=== PATIENT | female | born 1985 | race Caucasian/White ===

== ENCOUNTER 2017-09-03 08:00 | Outpatient (CLI) | payer OTHER ==
[2017-09-03 12:50] LABS: BASOPHILS % (AUTO) 0.6 %; EOSINOPHILS # (AUTO) 0.1 10^3/uL (0.0-0.7); EOSINOPHILS % (AUTO) 1.3 %; HGB - HEMOGLOBIN 13.7 g/dL (12.0-16.0); LYMPHOCYTES # (AUTO) 1.7 10^3/uL (1.5-3.5); LYMPHOCYTES % (AUTO) 22.4 %; MEAN CORPUSCULAR HEMOGLOBIN 29.3 pg (27.0-31.0); MEAN CORPUSCULAR HGB CONC 33.7 g/dL (32.0-36.0); MEAN CORPUSCULAR VOLUME 87.1 fL (81.0-99.0); MONOCYTES # (AUTO) 0.4 10^3/uL (0.0-1.0); MONOCYTES % (AUTO) 4.9 %; NEUTROPHILS # (AUTO) 5.3 10^3/uL (1.5-6.6); NEUTROPHILS % (AUTO) 70.8 %; PLT - PLATELET COUNT 323 10^3/uL (130-450); RED BLOOD COUNT 4.67 10^6/uL (4.20-5.40); RED CELL DISTRIBUTION WIDTH 13.1 % (12.0-15.0); WHITE BLOOD COUNT 7.5 x10^3/uL (4.8-10.8)
[2017-09-03 13:17] LABS: BUN - BLOOD UREA NITROGEN 16 mg/dL (6-20); CALCIUM 9.1 mg/dL (8.5-10.3); CARBON DIOXIDE - CO2 23 mmol/L (21-32); CHLORIDE 107 mmol/L (101-111); CREATININE 0.5 mg/dL (0.4-1.0); GFR - MDRD 145 (>89); GLUCOSE 88 mg/dL (70-100); SODIUM 137 mmol/L (135-145)
== END 2017-09-03 08:01 | disposition home or self-care (01) ==
LOC: LAB.N 08:00
PROVIDERS: ATTEND Physician Assistant Medical
DX: Z00.00 Encounter for general adult medical examination without abnormal findings (principal)
CPT/HCPCS: 36415; 80048; 84443; 85025

== ENCOUNTER 2017-10-14 08:00 | Outpatient (CLI) | payer OTHER | END 2017-10-14 08:01 | disposition home or self-care (01) | LOC: LAB.N 08:00 | PROVIDERS: ATTEND Registered Nurse | DX: N97.9 Female infertility, unspecified (principal) | CPT/HCPCS: 36415; 84144 ==

== ENCOUNTER 2017-12-04 18:59 | Outpatient (CLI) | payer OTHER ==
--- NOTE | 2017-12-05 11:54 | Ultrasound Report ---
Procedure Date: 12/04/2017 Accession Number: [id number] / [id number] Procedure: US - Pelvic w/Transvaginal CPT Code: FULL RESULT: EXAM: PELVIC ULTRASOUND EXAM DATE: 12/04/2017 08:18 PM. CLINICAL HISTORY: FEMALE INFERTILITY, UNSPECIFIED. COMPARISON: None. TECHNIQUE: Realtime transabdominal pelvic scan performed to identify the uterus and adnexa and as an overview of other pelvic structures, followed by transvaginal scan to provide greater detail of the uterus and adnexa, with static image documentation. FINDINGS: Uterus: 8.6 x 4.9 x 3.3 cm, volume 73 cc. Anteverted position. There is a nodular echogenic focus about the lower uterine segment, 1.2 x 0.8 x 0.6 cm. Endometrium: 11 mm. Cervix: There is a small amount of fluid in the cervix. The cervix appears otherwise Unremarkable. Right Ovary: 3.0 x 2.8 x 2.7 cm, volume 12 cc. Normal echotexture and blood flow. Left Ovary: 2.9 x 2.7 x 2.6 cm, volume 11 cc. Normal echotexture and blood flow. Free Fluid: None. IMPRESSION: Echogenic focus in the lower uterine segment. Likely polyp or mass. 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 RADIA
== END 2017-12-04 19:00 | disposition home or self-care (01) ==
LOC: DI 18:59
PROVIDERS: ATTEND Registered Nurse
DX: N97.9 Female infertility, unspecified (principal)
CPT/HCPCS: 76830; 76856

== ENCOUNTER 2018-03-31 11:20 | Outpatient (CLI) | payer OTHER ==
[2018-03-31 11:42] LABS: HCG UR QUAL NEGATIVE
== END 2018-03-31 11:21 | disposition home or self-care (01) ==
LOC: LAB 11:20
PROVIDERS: ATTEND Obstetrics & Gynecology
DX: Z01.812 Encounter for preprocedural laboratory examination (principal); N92.0 Excessive and frequent menstruation with regular cycle
CPT/HCPCS: 81025

== ENCOUNTER 2018-04-01 12:50 | Day surgery (SDC) | payer OTHER ==
--- NOTE | 2018-03-31 17:04 | PREOP HISTORY & PHYSICAL ---
DATE OF ADMISSION: 04/01/2018 IDENTIFICATION: This is a 32-year-old G1, P0-0-1-0. HISTORY OF PRESENT ILLNESS: Patient presents today for her scheduled preoperative visit. She is anticipated to undergo a 04/01/2018 diagnostic laparoscopy chromopertubation, hysteroscopy, dilatation and curettage, Mirena IUD insertion with possible lysis of adhesions and excision of endometriotic implants. Patient has had a long history of menorrhagia. She would change a super tampon every 2-3 hours. She is passing significant clots and does feel lightheaded and dizzy. She denies any syncope. Patient is to the point where the bleeding is so heavy that she has to take a day off of work. In her teenage years, she did go on control pills, in which she did well on. Unfortunately, now after a trial of control pills, patient is getting significant nausea and vomiting. She does note having menstrual migraines. Discussed with patient the risks, benefits, alternatives, indications, and expectations of a diagnostic laparoscopy chromopertubation, hysteroscopy, dilatation and curettage with possible lysis of adhesions and excision of endometriotic implants. Patient also verbalized her desire for a Mirena IUD. Included in our discussion were the risks of infection, damage to surrounding organs and blood loss. The most common complication in this case is most likely uterine perforation. After all of patient's questions were answered to her satisfaction, she verbalized a desire to proceed with surgery. Consent forms have been signed. Currently, patient is doing well. Denies any nausea, vomiting, fevers, chills, diarrhea or constipation. She states at this time her is having medical issues and currently would not actively pursue at this time. She would like some more information, however, in order to make a decision in how she should proceed with respect to children in the future. She would consider to adopt if it were too difficult for her to conceive. PAST MEDICAL HISTORY: Melanoma. PAST SURGICAL HISTORY 1. Melanoma excised from her right arm. 2. 1992 tonsillectomy. ALLERGIES: NO KNOWN DRUG ALLERGIES. MEDICATIONS: None. SOCIAL HISTORY: She denies any tobacco or illicit drug use. She does consume alcohol on a social basis. Her pharmacy of choice is [facility] in [place], [place]. 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 Patient is also going to school for social work and will graduate in the near future with a Bachelor's degree. She is to [employer]. PAST SURGICAL HISTORY: One ectopic in the left fallopian tube and given methotrexate in [place]. This occurred in 2010. She has not had control pills in the last 4 years. 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 She did get the Gardasil vaccination series. Her last Pap smear was about a month ago. Her menses are monthly and very heavy. She denies any dysmenorrhea. FAMILY HISTORY: She denies any knowledge of female carcinoma and does not know if there is any endometriosis in the family. REVIEW OF SYSTEMS: Negative unless otherwise stated. OBJECTIVE PHYSICAL EXAMINATION VITAL SIGNS: Weighs 236 pounds, BMI 34, blood pressure is 114/68. GENERAL: Patient is a well-developed, well-nourished female in no apparent distress. She is alert and oriented x3. Patient is very pleasant need to speak to. CARDIOVASCULAR: Rate is regular, no murmurs or rubs. PULMONARY: Clear to auscultation bilaterally. ABDOMEN: Soft, nontender. No masses, rebound, rigidity or guarding. LABORATORY/DATA 12/04/2017 ultrasound shows the uterus measuring 8.6 x 4.0 x 3.3 cm and a volume of 73 mL. Uterus is anteverted. There is a nodular echogenic focus in the lower uterine segment measuring 2.1 x 0.8 x 0.6 cm. Endometrium measures 11 mm. Ovaries are normal. No free fluid. 09/03/2017 labs show potassium 4.1, creatinine 0.5, glucose 88. TSH 1.16, white blood count 7.6, H and H at 13.7 and 40.7, platelets at 323. ASSESSMENT 1. A 32-year-old G1, P0-0-1-0. 2. Menorrhagia. 3. History of infertility with a prior left ectopic , given status post methotrexate, 2010. 4. Suspect nodular echogenic focus in lower uterine segment, most likely endometrial polyp. PLAN 1. We will proceed to a scheduled diagnostic laparoscopy chromopertubation, hysteroscopy, dilatation and curettage with possible lysis of adhesions and excision of endometrial implant. Per patient, we will add also placement of Mirena IUD. 2. Patient to get a test in preparation for tomorrow's surgery. 3. Patient has been advised to take ibuprofen and Tylenol as her main form of pain control. Though hesitant, patient was given a prescription for Vicodin for any breakthrough pain. She recalled that she felt extremely nauseated not only with Vicodin, but oxycodone in the past. 4. Patient to return to see me in 2 weeks at [facility] for a routine postoperative check. TD: 03/31/2018 14:32 LITZY
[2018-04-01] MEDS ORDERED: LACTATED RINGERS 1,000 ML IV ONE ×2 (12:58→19:28)
[2018-04-01] MEDS ORDERED: CELECOXIB 100 MG CAPSULE PO ONE (13:13)
[2018-04-01] MEDS ORDERED: GABAPENTIN 400 MG CAPSULE ONE (13:14)
[2018-04-01] MEDS ORDERED: ACETAMINOPHEN 1,000 MG/100 ML 0 ML IV ONE (13:19)
--- NOTE | 2018-04-01 14:16 | ANESTHESIA ---
Pre-Anesthesia VS, & Labs - Diagnosis heavy menstruation, infertility - Procedure Diagnostic laparoscopy, chromopartusation, hysteroscopy, Dilation, and curettage Vital Signs: Temp Pulse Resp BP Pulse Ox 36.4 C L 87 17 120/72 100 04/01/18 13:07 04/01/18 13:07 04/01/18 13:07 04/01/18 13:07 04/01/18 13:07 Height 5 ft 10 in Weight (kg) 104 kg - NPO >8 hours - Is Patient ?: No Home Medications and Allergies Home Medications: Ambulatory Orders Ibuprofen [Advil] 200 mg PO 04/01/18 Ibuprofen [Advil] 200 mg PO 04/01/18 Allergies/Adverse Reactions: Allergies Allergy/AdvReac Type Severity Reaction Status Date / Time No Known Drug Allergies Allergy Verified 04/01/18 13:01 Anes History & Medical History - Anesthetic History Anesthesia Complications: reports: No previous complications - Medical History Cardiovascular: reports: None Pulmonary: reports: None Urinary: reports: None Musculoskeletal: reports: None Endocrine/Autoimmune: reports: None Skin: reports: Other - Surgical History Eyes Ears Nose Throat (EENT): Tonsil/Adenoidectomy Dermatologic: Skin cancer surgery Exam General: Alert Dental: WNL Mouth Opening: Greater than 4 Fingerbreadths Mallampati classification: I Thyromental Distance: greater than 6 cm Respiratory: Lungs clear Cardiovascular: Regular rate, Normal S1, Normal S2 Plan Anesthesia Type: General Consent for Procedure(s) Verified and Reviewed: Yes Code Status: Attempt Resuscitation ASA classification: 2-Mild systemic disease Is this case an emergency?: No
[2018-04-01] MEDS ORDERED: LIDOCAINE 1%-EPI 1:100000 30 ML MDV ONE (17:37)
[2018-04-01] MEDS ORDERED: METHYLENE BLUE 0.5% 50 MG/10 ML AMPULE ONE (18:19)
[2018-04-01] MEDS ORDERED: LIDOCAINE 1%-EPI 1:100000 30 ML MDV SUBQ ONE (18:27)
[2018-04-01] MEDS ORDERED: METHYLENE BLUE 0.5% 50 MG/10 ML AMPULE IR ONE (18:45)
[2018-04-01] MEDS ORDERED: ROCURONIUM 50 MG/5 ML VIAL IVP ONE (19:00)
[2018-04-01] MEDS ORDERED: METOCLOPRAMIDE 10 MG/2 ML VIAL IVP ONE (19:00)
[2018-04-01] MEDS ORDERED: DEXAMETHASONE 4 MG/ML VIAL IVP ONE (19:00)
[2018-04-01] MEDS ORDERED: fentaNYL 100 MCG/2 ML VIAL IVP ONE (19:00)
[2018-04-01] MEDS ORDERED: NEOSTIGMINE 1 MG/1 ML 10 ML MDV IVP ONE (19:00)
[2018-04-01] MEDS ORDERED: LIDOCAINE-MPF 2% 5 ML VIAL IM ONE (19:00)
[2018-04-01] MEDS ORDERED: MIDAZOLAM 2 MG/2 ML VIAL IVP ONE (19:00)
[2018-04-01] MEDS ORDERED: GLYCOPYRROLATE 1 MG/5 ML VIAL IVP ONE (19:00)
[2018-04-01] MEDS ORDERED: ONDANSETRON 4 MG/2 ML VIAL IVP ONE (19:00)
[2018-04-01] MEDS ORDERED: ACETAMINOPHEN 1,000 MG/100 ML 100 ML IV ONE (19:24)
[2018-04-01] MEDS ORDERED: KETOROLAC 30 MG/ML VIAL ONE (19:29)
[2018-04-01] MEDS ORDERED: LORazepam 2 MG/ML VIAL IVP PRN (19:30)
[2018-04-01] MEDS ORDERED: HYDROmorphone 0.5 MG/0.5 ML SYRINGE IVP PRN (19:30)
[2018-04-01] MEDS ORDERED: ONDANSETRON 4 MG/2 ML VIAL IVP PRN (19:30)
[2018-04-01] MEDS ORDERED: HYDROcod/ACETAM 5/325 MG TABLET PO PRN (19:30)
[2018-04-01] MEDS ORDERED: HYDROmorphone 0.5 MG/0.5 ML SYRINGE ONE ×2 (19:32→19:56)
--- NOTE | 2018-04-01 19:40 | OPERATIVE REPORT ---
Operative Report - Other Other Information/Narrative: Date of Operation: 04/01/2018 Surgeon: Shannan Rosario DO FACOG News Broadcaster: None Roving Changer: Nelsy You CRNA Anesthesia: GET Pre-op Dx: 1. 32 yo 2. Menorrhagia 3. Desired future fertility 4. H/O left ectopic 5. Desired Mirena IUD Post-op Dx 1. 32 yo 2. Menorrhagia 3. Desired future fertility 4. H/O left ectopic Procedure: 1. Laparoscopic lysis of adhesions 2. Hysteroscopy 3. Dilation and curettage 4. Removal of endometrial polyp 5. Chromopertubation 6. Insertion Mirena IUD (S/N [id number], Exp Jul 2020, LOT [id number]) Findings: 1. Normal uterine fundus, ovaries and right fallopian tube 2. Normal appendix 3. Questionable left fallopian tube clubbing 4. Inferoposteral endometrial polyp 5. Dye coming bilaterally from the fallopian tubes 6. No evidence of endometriosis Specimens: Endometrial curettings Drains: None EBL: 10 mL Complications: None Dictation: [id number]
[2018-04-01 23:08] VITALS: BP 114/72
--- NOTE | 2018-04-02 02:39 | OPERATIVE REPORT ---
DATE OF OPERATION: 04/01/2018 PREOPERATIVE DIAGNOSES 1. A 32-year-old G1, P1-0-0-1. 2. Menorrhagia. 3. Desired future fertility. 4. History of left ectopic . 5. Desired Mirena intrauterine device. POSTOPERATIVE DIAGNOSES 1. A 32-year-old G1, P1-0-0-1. 2. Menorrhagia. 3. Desired future fertility. 4. History of left ectopic . 5. Desired Mirena intrauterine device. PROCEDURES 1. Laparoscopic lysis of adhesions. 2. Hysteroscopy. 3. Dilatation and curettage. 4. Removal of endometrial polyp via MyoSure. 5. Chromopertubation. 6. Insertion of a Mirena intrauterine device. SURGEON: Shannan Rosario DO, FACOG HR ADVISOR: None. PIECE HAND: Nelsy You CRNA ANESTHESIA: General endotracheal tube. FINDINGS 1. Normal uterine fundus, ovaries and right fallopian tube. 2. Normal appendix. 3. Questionable left fallopian tube clubbing. 4. Inferior posterior endometrial polyp. 5. Methylene blue dye visualized bilaterally from the fallopian tubes. 6. No evidence of endometriosis. 7. Significant adhesions between the intestines and the left abdominal sidewall extending to the superior portion of the left pelvis. SPECIMENS: Endometrial curettings. DRAINS: None. ESTIMATED BLOOD LOSS: 10 mL COMPLICATIONS: None. BRIEF HISTORY: Patient is a patient of [facility], who has had a history of heavy menstruation. Patient had significant bleeding to the point where she would have to stay at home. In addition, she and her were interested in fertility. Her past obstetrical history is significant for a left ectopic . She did not have surgical therapy for this ectopic and had methotrexate. Patient was concerned about her ability for future fertility. She verbalized her desire for lysis of adhesions to free up the left fallopian tube, should there be some as a result of her ectopic , and potentially destruction or removal of endometrial implants, given her history of heavy menstruation. Patient did deny any dysmenorrhea. Finally, patient verbalized her desire for a Mirena IUD. Patient and her just found out that her was experiencing some significant medical issues. Given that information, patient has decided to not immediately jump to conceiving. I discussed with patient the risks, benefits, alternatives, indications, and expectations of a diagnostic laparoscopy with chromopertubation, hysteroscopy, dilatation and curettage, insertion of a Mirena IUD with possible lysis of adhesions, destruction or excision of endometrial implants. I discussed with patient the risks, benefits, alternatives, indications, and expectations of the aforementioned procedures. Included in our discussion were the risks of hemorrhage, infection, and damage to surrounding organs, which may be inadvertent laceration, cauterization or ligation of the adjacent intestines, ureters, bladder. Also with these procedures, uterine perforation is a common complication. After all of patient's questions were answered to her satisfaction, she verbalized her desire to proceed with surgery. Consent forms have been signed. OPERATION IN DETAIL: Patient was identified and consented, taken to the operating room where IV access was already in place. She was then given sequential compression devices, which were placed on her lower extremities and turned on. Patient was then given satisfactory general endotracheal tube anesthesia as per Nelsy You. Patient's bladder was emptied with an in and out catheter. She was then prepped and draped in a normal sterile fashion in the lithotomy position using Yellofins stirrups. Antibiotics were not indicated in this case. A time-out was performed, which correctly identified the patient, site of procedure, and the procedure itself. Two laparoscopic port sites were first identified in the abdomen. The first was in the subumbilical fold, and the second one was in the left lower quadrant, 2 fingerbreadths superior to the anterior superior iliac spine and then 2 fingerbreadths medial. These 2 laparoscopic port sites were injected with 0.25% Marcaine with epinephrine. A total of 9 mL was used. Entrance to the abdomen was made directly with a Visiport trocar. Entrance in the abdomen was noted, and CO2 gas was used to insufflate the abdomen. Satisfactory pneumoperitoneum was obtained. The second trocar was then placed under direct visualization of the camera. Inspection of the pelvis revealed significant adhesions between the intestines and the left side of the lower abdomen and upper pelvis. There was also one area of adhesion between the right ovary and right side of the uterine fundus. The appendix appeared normal, as well as the stomach. I could not visualize the liver edge. Closer inspection of the pelvis revealed normal ovaries bilaterally. The right fallopian tube appeared to be normal, but the left fallopian tube was questionable for clubbing of the fimbria. I took close attention towards the pelvis and did not see any evidence of endometriosis. Lysis of adhesions did have to be performed in order to free up the left adnexa. This was done both sharply and with electrocautery via the LigaSure. Attention was then turned towards the vagina. The cervix was identified and then dilated to a 6-Guatemalan. The MyoSure hysteroscopic system was then placed into the uterus. Saline solution was used as a distending media. Satisfactory visualization of the endometrium revealed a normal bilateral fallopian tube ostia. There was noted a polyp on the inferior posterior portion of the endometrium. This polyp was easily excised with the MyoSure LITE. Hemostasis was noted. Next, the chromopertubation was then performed. An acorn uterine manipulator was placed in the cervix, and a syringe of methylene blue was attached to the uterine manipulator. Insufflation was then restarted, and the abdomen was satisfactorily visualized, satisfactorily visualizing both fallopian tubes. Methylene blue dye was then injected into the uterus, and methylene blue dye was spilled into the abdomen. There was approximately a 2-3 second delay of the dye spilling on the left fallopian tube, compared to the right side. Approximately 9 mL was used. The laparoscopic portion of the case was then completed. All instruments were removed out of the abdomen and CO2 gas was allowed to egress into the atmosphere, thus relieving the pneumoperitoneum. The 2 laparoscopic port sites were then closed with a single interrupted stitch of 4-0 Monocryl. Dermabond was placed on top. Attention was then turned towards, again, the vagina. There was some methylene blue dye on the cervix, as well as the vagina secondary to the chromopertubation. In any event, the Mirena IUD was placed easily without difficulty. The strings were then trimmed approximately 2.5 cm from the external cervical os. The cervix was hemostatically stable. At this point in time, the surgery had been completed. All instruments were removed, and hemostasis was noted. Patient was taken back to recovery room in stable condition. She will be discharged home later today after postoperative criteria are met. I would expect to see patient at [facility] in 2 weeks for a routine postop visit. We will anticipate the results of her pathology from the polypectomy. All sponge, lap, and needle counts were correct x2, as per nurse report. TD: 04/01/2018 20:15 MTDD
== END 2018-04-01 23:15 | disposition home or self-care (01) ==
LOC: SDS 12:50 → OBS 20:12 → SDS 23:15
PROVIDERS: ATTEND Obstetrics & Gynecology
PROC: 3E0P8KZ Introduction of Other Diagnostic Substance into Female Reproductive, Via Natural or Artificial Opening Endoscopic (ICD-10-PCS; 2018-04-01)
PROC: 0UH97HZ Insertion of Contraceptive Device into Uterus, Via Natural or Artificial Opening (ICD-10-PCS; 2018-04-01)
PROC: 0DNW4ZZ Release Peritoneum, Percutaneous Endoscopic Approach (ICD-10-PCS; principal; 2018-04-01 14:00)
PROC: 0UB98ZZ Excision of Uterus, Via Natural or Artificial Opening Endoscopic (ICD-10-PCS; 2018-04-01 14:00)
PROC: 0UDB8ZX Extraction of Endometrium, Via Natural or Artificial Opening Endoscopic, Diagnostic (ICD-10-PCS; 2018-04-01 14:00)
DX: N92.0 Excessive and frequent menstruation with regular cycle (principal); N97.9 Female infertility, unspecified; Z87.59 Personal history of other complications of pregnancy, childbirth and the puerperium; N84.0 Polyp of corpus uteri; K66.0 Peritoneal adhesions (postprocedural) (postinfection); Z85.820 Personal history of malignant melanoma of skin; Z86.19 Personal history of other infectious and parasitic diseases
CPT/HCPCS: 49329; 58300; 58350; 58558; A9270; J1170; J2765; J7120

== ENCOUNTER 2018-12-08 08:00 | Outpatient (CLI) | payer OTHER | END 2018-12-08 23:59 | disposition home or self-care (01) | LOC: LAB.R 08:00 | PROVIDERS: ATTEND Family Medicine | DX: R39.9 Unspecified symptoms and signs involving the genitourinary system (principal) | CPT/HCPCS: 87086 ==

== ENCOUNTER 2018-12-09 23:57 | Emergency (ER) | payer OTHER ==
--- NOTE | 2018-12-10 01:09 | ED Physician Documentation ---
PD HPI SKIN - Stated complaint Stated Complaint: HIVES - Chief complaint Chief Complaint: General - History obtained from History obtained from: Patient - History of Present Illness Timing - onset: Today (this morning) Timing - details: Abrupt onset Pain level max: 0 Pain level now: 0 Location: Bodywide Quality / character: Itchy, Raised Improved by: Benadryl Associated symptoms: Facial swelling, Urinary sx. No: Dyspnea, Abd pain Contributing factors: Exposed to medication Similar symptoms before: Has not had sx before - Additional information Additional information: recently started macrobid for UTI. Had first dose yesterday without incident. Had second dose this morning and noticed mild pruritic rash which responded to PO benadryl. Tonight she took third dose of macrobid and subsequently had bodywide, intensely pruritic rash including facial swelling. 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: Dilation and currettage - Present Medications Home Medications: Ambulatory Orders Medication Instructions Recorded Confirmed Ibuprofen [Advil] 200 mg PO 04/01/18 Amox/Clav 875/125 [Augmentin] 1 each PO Q12H #13 tablet 12/10/18 predniSONE [Prednisone] 40 mg PO DAILY 3 Days #6 tablet 12/10/18 - Allergies Allergies/Adverse Reactions: Allergies Allergy/AdvReac Type Severity Reaction Status Date / Time No Known Drug Allergies Allergy Verified 12/10/18 00:09 - Social History Does the pt smoke?: No Smoking Status: Never smoker Does the pt drink ETOH?: Yes Does the pt have substance abuse?: No PD ED PE NORMAL - Vitals Vital signs reviewed: Yes - General General: Alert and oriented X 3, No acute distress, Well developed/nourished - HEENT HEENT: Pharynx benign - Respiratory Respiratory: No respiratory distress, Clear bilaterally - Derm Derm: Other (mild facial erythema and swelling. mild/faint hives on bilateral abdominal wall flanks) Results - Vitals Vitals: Vital Signs - 24 hr 12/10/18 12/10/18 00:07 01:31 Temperature 36.8 C 36.4 C L Heart Rate 75 77 Respiratory 17 16 Rate Blood Pressure 132/93 H 116/79 O2 Saturation 98 97 Oxygen O2 Source Room air PD MEDICAL DECISION MAKING - ED course Complexity details: considered differential, d/w patient ED course: symptoms nearly resolved prior to evaluation although there is still residual facial erythema and swelling as well as faint hives on abdominal flanks. She is to discontinue macrobid and rx augmentin for UTI. Also given prednisone with rx for same. Departure - Departure Disposition: 01 Home, Self Care Clinical Impression: Allergic reaction caused by a drug Condition: Good Instructions: ED Drug React Allergic Follow-Up: FARTUN OBREGON MD [Primary Care Provider] - Prescriptions: Amox/Clav 875/125 [Augmentin] 1 each PO Q12H #13 tablet predniSONE [Prednisone] 40 mg PO DAILY 3 Days #6 tablet Discharge Date/Time: 12/10/18 01:32
[2018-12-10] MEDS ORDERED: predniSONE 20 MG TABLET PO STA (01:21)
[2018-12-10 01:31] VITALS: BP 116/79
== END 2018-12-10 01:32 | disposition home or self-care (01) ==
LOC: ED 23:57
DX: L27.0 Generalized skin eruption due to drugs and medicaments taken internally (principal); L29.9 Pruritus, unspecified; T37.8X5A Adverse effect of other specified systemic anti-infectives and antiparasitics, initial encounter; N39.0 Urinary tract infection, site not specified
CPT/HCPCS: 99282; 99283; J7512

== ENCOUNTER 2019-01-26 08:00 | Outpatient (CLI) | payer OTHER ==
[2019-01-26 20:13] LABS: TRICHOMONAS VAGINALIS DNA NEGATIVE (NEGATIVE)
== END 2019-01-26 23:59 | disposition home or self-care (01) ==
LOC: LAB.R 08:00
PROVIDERS: ATTEND Obstetrics & Gynecology
DX: Z11.3 Encounter for screening for infections with a predominantly sexual mode of transmission (principal)
CPT/HCPCS: 87491; 87591; 87661

== ENCOUNTER 2019-02-01 14:19 | Outpatient (CLI) | payer OTHER ==
[2019-02-02 12:42] LABS: HIV AG/AB 4TH GEN NON-REACTIVE (NON-REACTIVE)
[2019-02-03 10:56] LABS: HSV 1 IGG TYPE SPECIFIC AB <0.90 index; HSV 2 IGG TYPE SPECIFIC AB 6.92 index
== END 2019-02-01 23:59 | disposition home or self-care (01) ==
LOC: LAB.N 14:19
PROVIDERS: ATTEND Obstetrics & Gynecology
DX: Z11.3 Encounter for screening for infections with a predominantly sexual mode of transmission (principal)
CPT/HCPCS: 36415; 80074; 81599; 86592; 86695; 86696; 87389

== ENCOUNTER 2019-02-21 08:20 | Outpatient (CLI) | payer OTHER ==
--- NOTE | 2019-02-21 14:19 | Ultrasound Report ---
Reason: DUB Procedure Date: 02/21/2019 Accession Number: [id number] / [id number] Procedure: US - Pelvic w/Transvaginal CPT Code: Final Report FULL RESULT: EXAM: PELVIC ULTRASOUND EXAM DATE: 02/21/2019 09:27 AM. CLINICAL HISTORY: Dysfunctional uterine bleeding. COMPARISON: PELVIC W/TRANSVAGINAL 12/04/2017 8:00 PM. TECHNIQUE: Realtime transabdominal pelvic scan performed to identify the uterus and adnexa and as an overview of other pelvic structures, followed by transvaginal scan to provide greater detail of the uterus and adnexa, with static image documentation. FINDINGS: Uterus: 9 x 4 x 5 cm, volume 98 cc. Anteverted position. Normal overall size and echotexture. Masses: Intramural posterior small fibroid measuring 13 x 8 x 13 mm. Endometrium: 10 mm. A couple of echogenic nodules in the lower uterine segment measuring up to 12 x 5 x 10 mm on the left and 15 x 7 x 8 mm on the right. Cervix: Unremarkable. Right Ovary: Volume 17 cc. Normal echotexture and blood flow, containing a benign-appearing hemorrhagic 2.5 cm cyst. Left Ovary: Volume 12 cc. Normal echotexture and blood flow. Free Fluid: Trace. Other: None. IMPRESSION: 1. A couple of small endometrial polyps suspected in the lower uterine segment. 2. Small intramural fibroid. RADIA
== END 2019-02-21 08:21 | disposition home or self-care (01) ==
LOC: DI 08:20
PROVIDERS: ATTEND Obstetrics & Gynecology
DX: N93.8 Other specified abnormal uterine and vaginal bleeding (principal); D25.1 Intramural leiomyoma of uterus; N84.0 Polyp of corpus uteri
CPT/HCPCS: 76830; 76856

== ENCOUNTER 2019-02-24 08:00 | Outpatient (CLI) | payer OTHER ==
[2019-02-27 13:46] LABS: SOURCE VAGINAL
== END 2019-02-24 23:59 | disposition home or self-care (01) ==
LOC: LAB.R 08:00
PROVIDERS: ATTEND Obstetrics & Gynecology
DX: N89.8 Other specified noninflammatory disorders of vagina (principal)
CPT/HCPCS: 87529

== ENCOUNTER 2019-03-15 13:17 | Outpatient (CLI) | payer OTHER ==
[2019-03-15 13:28] LABS: BASOPHILS # (AUTO) 0.1 10^3/uL (0.0-0.1); BASOPHILS % (AUTO) 0.7 %; EOSINOPHILS # (AUTO) 0.1 10^3/uL (0.0-0.7); EOSINOPHILS % (AUTO) 1.6 %; HGB - HEMOGLOBIN 13.9 g/dL (12.0-16.0); LYMPHOCYTES % (AUTO) 29.3 %; MEAN CORPUSCULAR HEMOGLOBIN 29.4 pg (27.0-31.0); MEAN CORPUSCULAR HGB CONC 31.5 g/dL (32.0-36.0); MEAN CORPUSCULAR VOLUME 93.4 fL (81.0-99.0); MEAN PLATELET VOLUME 10.3 fL (7.9-10.8); MONOCYTES # (AUTO) 0.4 10^3/uL (0.0-1.0); MONOCYTES % (AUTO) 5.9 %; NEUTROPHILS # (AUTO) 4.2 10^3/uL (1.5-6.6); NEUTROPHILS % (AUTO) 62.2 %; PLT - PLATELET COUNT 314 10^3/uL (130-450); RED BLOOD COUNT 4.72 10^6/uL (4.20-5.40); RED CELL DISTRIBUTION WIDTH 13.2 % (12.0-15.0); WHITE BLOOD COUNT 6.8 x10^3/uL (4.8-10.8)
[2019-03-15 14:37] LABS: HCG UR QUAL NEGATIVE
== END 2019-03-15 13:18 | disposition home or self-care (01) ==
LOC: LAB 13:17
PROVIDERS: ATTEND Obstetrics & Gynecology
DX: Z30.2 Encounter for sterilization (principal); N93.9 Abnormal uterine and vaginal bleeding, unspecified
CPT/HCPCS: 36415; 81025; 85025

== ENCOUNTER 2019-03-17 07:16 | Day surgery (SDC) | payer OTHER ==
--- NOTE | 2019-03-15 18:14 | HISTORY & PHYSICAL EXAMINATION ---
HPI - Admitted From Admitted from: Other - History Obtained From Records Reviewed: Other History obtained from: Patient Exam limitations: No limitations - History of Present Illness HPI Comment/Other: CC: PreOp HPI: Azeem is here today for her PreOp appointment. She is scheduled for hysteroscopy d&c, ablation, and bilateral salpingectomy. She denies any concerns or complaints today. ...................................................................Marisa Driver RN March 15, 2019 12:50 PM Please see prior clinic notes. Has had onoing inssues with DUB and desires WILLIAMS. Aware the WILLIAMS precludes future and desires concomitant sterilzaiton wioth salpingectomy. Has longstanding issues with infertility Had D&C last year and had TERRA that she wants revisisted durng LSC portion of procedures. Normal EMB No change in health hx since time of prior exam Allergies: MACROBID (Moderate) Medications: No Known Medications Problems: Preop exam (ICD-V72.84) (JJS46-C56.818) Review of test results (ICD-V68.89) (SKG73-K16.89) Vaginal lesion (ICD-623.8) (JJJ73-O26.9) Screening for cervical cancer (ICD-V76.2) (NYP19-X04.4) DUB (ICD-626.8) (BLX83-L44.8) Dysuria (ICD-788.1) (YGZ62-U48.0) Contraception management (ICD-V25.09) (IYO10-G34.9) Screening for std (ICD-V74.5) (YSV90-D65.3) Screening for malignant neoplasm of the cervix (ICD-V76.2) (ONF74-P14.4) Allergy, unspecified, initial encounter (ICD-995.3) (CDG71-F87.40xA) Urinary symptoms (ICD-788.99) (QZO83-D61.9) Encounter for removal of intrauterine contraceptive device (ICD-V25.12) (ICD10- Z30.432) Infertility, female NOS (ICD-628.9) (UVS14-V51.9) Menorrhagia (ICD-626.2) (PSU31-T16.0) Posterior rhinorrhea (ICD-784.91) (KGP43-Z63.82) Seasonal allergies (ICD-477.9) (MVR35-P91.2) Personal history of malignant melanoma of skin (ICD-V10.82) (YOQ01-E10.820) Family History of Alcoholism (ICD-V61.41) (RLI30-H05.1) Melanoma, arm, right (ICD-172.6) (ARB98-Z67.61) Menstrual migraine, without mention of intractable migraine without mention of status migrainosus (ICD-346.40) (DEN97-U23.829) Preventative health care (ICD-V70.0) (YXX48-O18.00) Irritable bowel syndrome (ICD-564.1) (LSK42-B47.9) Past Medical History: IBS Menstrural associated Migraines Melanoma 2016 Infertility Past Surgical History: Excisional biopsy of melanoma right arm January 2016 Tonsillectomy 1993 laparoscopic lysis of adhesions, hysteroscopy dilation and curettage, polypectomy, chromopertubation and Mirena 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 Physical Constitutional: alert, no acute distress, well hydrated, well developed. Skin: normal turgor, normal color, no rashes. Head: atraumatic, normocephalic. Neurologic: normal. Psych: affect and mood appropriate, normal interaction, good eye contact. Vulva: From prior exam: Vulva: normal appearance, no lesions or masses. Urethra: normal. Bladder: normal. Vagina: normal. small nodule midline on the right vaginal sidewall Cervix: normal, no motion tenderness, no lesions. Uterus: mobile, non-tender, adequate support. AV Adnexa: normal. exam limited by habitus Impression & Recommendations: Problem # 1: Preop exam (ICD-V72.84) (AQC79-W95.818) Orders: PRE OP -[id number] (CPT-[id number]) Reviewed risks/benefits/alternatives of hysteroscopy D&C/WILLIAMS/Lsc salpingectomy Includes but not limited to bleeding/infection/damage to nearby tissue and organs Reviewed implications of possible perforation Aware that salpingectomy is performed first and she may be sterilized and find we are unable to complete WILLIAMS. 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
[~2019-03-17 07:16] MED LIST: ACETAMINOPHEN 1,000 MG/100 ML 100 ML IV ONE; GABAPENTIN 400 MG CAPSULE ONE
[2019-03-17] MEDS ORDERED: GLYCOPYRROLATE 1 MG/5 ML VIAL IVP ONE (07:17)
[2019-03-17] MEDS ORDERED: PROPOFOL 200 MG/20 ML VIAL IVP ONE (07:17)
[2019-03-17] MEDS ORDERED: DEXAMETHASONE 4 MG/ML VIAL IVP ONE (07:17)
[2019-03-17] MEDS ORDERED: NEOSTIGMINE 1 MG/1 ML 10 ML MDV IVP ONE (07:17)
[2019-03-17] MEDS ORDERED: fentaNYL 100 MCG/2 ML VIAL IVP ONE (07:17)
[2019-03-17] MEDS ORDERED: ROCURONIUM 50 MG/5 ML VIAL IVP ONE (07:17)
[2019-03-17] MEDS ORDERED: MIDAZOLAM 2 MG/2 ML VIAL IVP ONE (07:17)
[2019-03-17] MEDS ORDERED: ceFAZolin 1 GM VIAL IV ONE (07:17)
[2019-03-17] MEDS ORDERED: BUPIVACAINE 0.25% PF 30 ML VIAL ONE (07:33)
[2019-03-17] MEDS ORDERED: LIDOCAINE 1%-EPI 1:100000 20 ML MDV ONE (07:34)
[2019-03-17] MEDS ORDERED: LACTATED RINGERS 1,000 ML IV ONE ×4 (07:40→13:08)
[2019-03-17 07:43] LABS: HCG UR QUAL NEGATIVE
--- NOTE | 2019-03-17 08:07 | ANESTHESIA ---
Pre-Anesthesia VS, & Labs - Diagnosis dysfunctional uterine bleeding. desires sterilization - Procedure myosure, hysteroscopy, DnC and lap-dominga salpingectomy Vital Signs: Temp Pulse Resp BP Pulse Ox 36.5 C 80 16 116/68 98 03/17/19 07:41 03/17/19 07:41 03/17/19 07:41 03/17/19 07:41 03/17/19 07:41 Height 5 ft 10 in Weight (kg) 96.3 kg Body Mass Index 33.0 - Is Patient ?: No Home Medications and Allergies Ibuprofen [Advil] 200 mg PO PRN PRN 04/01/18 Allergies/Adverse Reactions: Allergies Allergy/AdvReac Type Severity Reaction Status Date / Time nitrofurantoin Allergy Hives Verified 03/17/19 07:51 [From Macrobid] Anes History & Medical History - Anesthetic History Anesthesia Complications: reports: No previous complications Family history of Anesthesia Complications: Denies Family history of Malignant Hyperthermia: Denies - Medical History Cardiovascular: reports: None Pulmonary: reports: None Gastrointestinal: reports: None, Other Urinary: reports: None Neuro: reports: None Musculoskeletal: reports: None Endocrine/Autoimmune: reports: None Blood Disorders: reports: None Skin: reports: None, Other Smoking Status: Current every day smoker ("one or two cigarrates couple days a week") Psychosocial: reports: No issues indicated - Surgical History Eyes Ears Nose Throat (EENT): Tonsil/Adenoidectomy Gynecologic: Dilation and currettage Exam General: Alert, Oriented x3, Cooperative, No acute distress Dental: WNL Mouth Openin Fingerbreadth Neck Mobility: Normal Mallampati classification: I Thyromental Distance: 4-6 cm Respiratory: Lungs clear, Normal breath sounds, No respiratory distress, No accessory muscle use Cardiovascular: Regular rate, Normal S1, Normal S2, No murmurs Abdomen: Normal bowel sounds, Soft, No tenderness, No hepatospenomegaly, No masses Extremities: No clubbing, No cyanosis, No edema, Normal pulses, No tenderness/swelling Neurological: Normal gait, Normal speech, Strength at 5/5 X4 ext, Normal tone, Sensation intact, Cranial nerves 3-12 NL, Reflexes 2+ Mental/Cognitive Status: Alert/Oriented X3, Normal for patient Cognitive Status: Within normal limits Plan Anesthesia Type: General Consent for Procedure(s) Verified and Reviewed: Yes Code Status: Attempt Resuscitation ASA classification: 1-Healthy patient Is this case an emergency?: No
[2019-03-17] MEDS ORDERED: BUPIVACAINE 0.5% PF 30 ML VIAL INFIL ONE ×2 (11:31)
[2019-03-17] MEDS ORDERED: LIDOCAINE 1%-EPI 1:100000 20 ML MDV SUBQ ONE (11:32)
--- NOTE | 2019-03-17 12:44 | OPERATIVE REPORT ---
Operative Report - General Planned Procedure: Laparoscopic bilateral salpingectomy, hysteroscopy D&C with possible poly pectomy/myomectomy, endoemtrial ablation. Pre-Op Diagnosis: Dysfunctional uterine bleeding with failed medical management; desires BTL Procedure Performed: Laparoscopic bilateral salpingectomy, hysteroscopy D&C, partial Rollerball ablation, Novasure ablation Post Op Diagnosis: Same - Procedure Note Primary Surgeon: Livia Freeman MD Secondary Surgeon: Dane Dangelo MD Anesthesia Provider: Nelsy You CRNA Anesthesia Technique: General ET tube Pathology: Uterine contents and bilateral fallopian tubes IV Fluids (mL): 1,800 (see Anesthesia report. ) Estimated Blood Loss (mL): 10 Indications: Has had onoing inssues with DUB and desires definitive management with endometrial ablation. Aware the WILLIAMS precludes future and desires concomitant sterilization with salpingectomy. Has longstanding issues with infertility. Had D&C last year and had TERRA that she wants revisited during LSC portion of procedures. Normal EMB Findings: Normal appearing uterus, tubes, ovaries, appendix. Uterine cavity with fluffy, polypoid endometrium. Bilaeral tubal ostia noted. Complications: None - Other Other Information/Narrative: Risks benefits and alternatives of the procedure were reviewed. Consent was again confirmed. Patient was brought to the operating room and underwent general anesthesia. She was placed in dorsal lithotomy position with legs resting in yellowfin stirrups. SCDs were in place and activated. Cefazolin 2 g IV was administered prior to start of procedure. Exam under anesthesia was performed. She was prepped and draped in the usual sterile fashion. Surgical timeout was performed. Bimanual exam was performed. Sterile speculum was placed anduterine manipulator was placed.. The base of the umbilicus was anesthetized with intradermal injection of 0.25% Marcaine. A 5 mm skin incision was made with a scalpel. A 5 mm blunt trocar was inserted under direct visualization using Visiport. Once the port was confirmed to be placed intraperitoneally, the abdomen was insufflated to 15 mmHg with CO2 gas Exploration of the abdomen and pelvis was confirmed that no injury was sustained with placement of the trocar. Two additional 5 mm ports were placed in the right and left lower quadrants, taking care to avoid the epigastric arteries, while under direct visualization via laparoscopic guidance. The abdomen was explored with the laparoscope, with findings as noted. The right Fallopian tube was grasped and elevated and resected from the underlying mesosalpinx with the LigaSure bipolar sealing and cutting device. The uterine ovarian ligament was transected using the LigaSure bipolar device. The procedure was repeated on the left Fallopian tube. Both tubal segments were removed from the abdomen/pelvis through the laparoscopic ports. The abdomen w as desufflated. All instruments were removed from the abdomen. Skin was closed with interrupted subcuticular stitches using 4-0 Monocryl. Dermabond was applied over the suture sites. Good hemostasis was noted. Attention was then turned to the hysteroscopic portion of the procedure. Speculum was placed in the vagina and the cervix was visualized. Single-tooth tenaculum was placed at the anterior cervical lip. Paracervical block was administered using a total of 20 cc of 1% lidocaine with epinephrine was injected at the 4:00 and 8:00 positions lateral to the portio of the cervix. T he cervical os was serially dilated with Hegar dilators to accommodate the caliber of the diagnostic hysteroscope. Uterus sounded to 9.5 cm. The hysteroscope was inserted and findings were noted as above. Hysteroscope was removed. Sharp curettage D&C was performed with sharp curettage. Because the Novasure ablation was not immediately available, a cystoscopic roller ball was used to attempt ablation. The cystoscope was inserted into the uterus and water was used as instillation fluid. Partial ablation was completed under direct observation. During the course of the rollerball procedure, the Novasure became available. 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 Uterine cavity measured 5.5 cm and width was 3.9 cm. Wattage was 118 and duration of ablation was 59 seconds. All ins Tenaculum was removed. Tenaculum sites were noted to be hemostatic. All instruments were removed from the vagina. Procedure was well-tolerated without ctruments were removed from the uterus. Procedure was well tolerated and without complication. Fluid deficit:850 cc (NS used during hysteroscopy. Water used for rollerball ablation).
[2019-03-17 13:13] LABS: CALCIUM 8.5 mg/dL (8.5-10.3); CREATININE 0.7 mg/dL (0.4-1.0)
[2019-03-17] MEDS ORDERED: HYDROmorphone 0.5 MG/0.5 ML SYRINGE ONE (13:20)
[2019-03-17] MEDS ORDERED: ONDANSETRON 4 MG/2 ML VIAL IVP PRN (14:16)
[2019-03-17] MEDS ORDERED: ONDANSETRON ODT 4 MG TABLET TL PRN (14:16)
[2019-03-17 15:23] VITALS: BP 116/67
== END 2019-03-17 07:17 | disposition home or self-care (01) ==
LOC: SDS 07:16
PROVIDERS: ATTEND Obstetrics & Gynecology
PROC: 0U5B8ZZ Destruction of Endometrium, Via Natural or Artificial Opening Endoscopic (ICD-10-PCS; principal; 2019-03-17 08:30)
PROC: 0UDB8ZZ Extraction of Endometrium, Via Natural or Artificial Opening Endoscopic (ICD-10-PCS; 2019-03-17 08:30)
PROC: 0UB74ZZ Excision of Bilateral Fallopian Tubes, Percutaneous Endoscopic Approach (ICD-10-PCS; 2019-03-17 08:30)
DX: N93.8 Other specified abnormal uterine and vaginal bleeding (principal); Z30.2 Encounter for sterilization; N84.0 Polyp of corpus uteri
CPT/HCPCS: 36415; 58563; 58661; 80048; 81025; A9270; J0131; J1170; J7120

== ENCOUNTER 2019-06-21 11:32 | Outpatient (CLI) | payer OTHER | END 2019-06-21 23:59 | disposition home or self-care (01) | LOC: LAB.R 11:32 | PROVIDERS: ATTEND Physician Assistant Medical | DX: R50.9 Fever, unspecified (principal) | CPT/HCPCS: 87275; 87276 ==

== ENCOUNTER 2020-04-22 15:10 | Outpatient (CLI) | payer OTHER | END 2020-04-22 23:59 | disposition home or self-care (01) | LOC: LAB.N 15:10 | PROVIDERS: ATTEND Physician Assistant Medical | DX: R05 Cough (principal); Z20.822 Contact with and (suspected) exposure to COVID-19 | CPT/HCPCS: 87275; 87276 ==

== ENCOUNTER 2020-04-22 15:10 | Outpatient (CLI) | payer OTHER | END 2020-04-22 23:59 | disposition home or self-care (01) | LOC: LAB.N 15:10 | PROVIDERS: ATTEND Physician Assistant Medical | DX: R05 Cough (principal) | CPT/HCPCS: 87275; 87276 ==

== ENCOUNTER 2020-06-12 16:43 | Emergency (ER) | payer OTHER ==
[2020-06-12] MEDS ORDERED: MAG HYDROX/AL HYDROX/SIMETH 30 ML UDC PO STA (17:00)
[2020-06-12] MEDS ORDERED: LIDOCAINE VISCOUS 2% 15 ML UDC MM STA (17:00)
--- NOTE | 2020-06-12 17:01 | ED Physician Documentation ---
PD HPI ABD PAIN - Stated complaint Stated Complaint: ABD PX - Chief complaint Chief Complaint: Abd Pain - History obtained from History obtained from: Patient - Additional information Additional information: 35-year-old woman with history of tubal ligation, uterine ablation and breast reduction presents with left upper quadrant pain. She had a couple of months ago for maybe a week and a half. Now it has been presents for 3 days. It does at times radiate to the back. It gets worse after eating and she feels bloated. No nausea or changes in bowel movements. 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 - Present Medications Home Medications: Ambulatory Orders Medication Instructions Recorded Confirmed Omeprazole 40 mg PO DAILY #30 cap 06/12/20 - Allergies Allergies/Adverse Reactions: Allergies Allergy/AdvReac Type Severity Reaction Status Date / Time nitrofurantoin Allergy Hives Verified 06/12/20 16:46 [From Macrobid] - Social History Does the pt smoke?: No Smoking Status: Current every day smoker ("one or two cigarrates couple days a week") Does the pt drink ETOH?: Yes Does the pt have substance abuse?: No PD ED PE NORMAL - Vitals Vital signs reviewed: Yes - General General: Alert and oriented X 3, No acute distress - HEENT HEENT: PERRL, EOMI - Neck Neck: Supple, no meningeal sign, No bony TTP - Cardiac Cardiac: RRR, No murmur - Respiratory Respiratory: No respiratory distress, Clear bilaterally - Abdomen Abdomen: Normal bowel sounds, Soft, Other (minimal LUQ TTP ) - Back Back: No CVA TTP, No spinal TTP - Derm Derm: Normal color, Warm and dry - Neuro Neuro: Alert and oriented X 3, Normal speech Results - Vitals Vitals: Vital Signs - 24 hr 06/12/20 06/12/20 16:45 18:48 Temperature 36.6 C 37.1 C Heart Rate 79 80 Respiratory 16 18 Rate Blood Pressure 128/62 132/69 H O2 Saturation 100 100 Oxygen O2 Source Room air - Labs Labs: Laboratory Tests 06/12/20 06/12/2021 16:50 17:04 17:04 WBC 9.7 RBC 4.53 Hgb 14.1 Hct 42.0 MCV 92.7 MCH 31.1 H MCHC 33.6 RDW 12.7 Plt Count 306 MPV 10.2 Neut # (Auto) 5.8 Lymph # (Auto) 2.9 Graham # (Auto) 0.6 Eos # (Auto) 0.3 Baso # (Auto) 0.1 Absolute Nucleated RBC 0.00 Nucleated RBC % 0.0 Sodium 134 L Potassium 3.9 Chloride 104 Carbon Dioxide 21 Anion Gap 9.0 BUN 14 Creatinine 0.6 Estimated GFR (MDRD) 115 Glucose 88 Calcium 9.0 Total Bilirubin 0.5 AST 24 ALT 35 Alkaline Phosphatase 52 Total Protein 7.7 Albumin 4.6 Globulin 3.1 Albumin/Globulin Ratio 1.5 Lipase 37 Urine Color YELLOW Urine Clarity CLEAR Urine pH 7.0 Ur Specific [place] 1.015 Urine Protein NEGATIVE Urine Glucose (UA) NEGATIVE Urine Ketones NEGATIVE Urine Occult Blood NEGATIVE Urine Nitrite NEGATIVE Urine Bilirubin NEGATIVE Urine Urobilinogen 0.2 (NORMAL) Ur Leukocyte Esterase NEGATIVE Ur Microscopic Review NOT INDICATED Urine Culture Comments NOT INDICATED Urine HCG, Qual NEGATIVE PD MEDICAL DECISION MAKING - ED course ED course: 35 yo F With postprandial left upper quadrant pain. Symptoms seemed most consistent with gastritis or ulcer but she really did not have any relief with oral lidocaine and as such a contrast-enhanced CT was ordered. That study was negative, she was prescribed a PPI pending follow-up. She plans on seeing a specialist for upper and lower endoscopies. Departure - Departure Disposition: 01 Home, Self Care Clinical Impression: Abdominal pain Qualifiers: Abdominal location: left upper quadrant Qualified Code(s): R10.12 - Left upper quadrant pain Condition: Good Record reviewed to determine appropriate education?: Yes Instructions: ED Abdominal Pain Unkn Cause Prescriptions: Omeprazole 40 mg PO DAILY #30 cap Comments: CT and labs are normal, as discussed this is most likely going to be gastritis or ulcer. Follow-up with your doctor and consider referral to GI for upper and/or lower endoscopies. Return for new or worsening symptoms. Discharge Date/Time: 06/12/20 18:36
[2020-06-12 17:03] LABS: BILIRUBIN,URINE NEGATIVE (NEGATIVE); GLUCOSE, URINE (UA) NEGATIVE (NEGATIVE); KETONES,URINE (UA) NEGATIVE (NEGATIVE); LEUKOCYTE ESTERASE, URINE NEGATIVE (NEGATIVE); NITRITE,URINE NEGATIVE (NEGATIVE); OCCULT BLOOD,URINE NEGATIVE (NEGATIVE); PROTEIN,URINE NEGATIVE (NEGATIVE); UROBILINOGEN,URINE 0.2 (NORMAL) E.U./dL (NORMAL)
[2020-06-12 17:05] LABS: CLARITY,URINE CLEAR (CLEAR); HCG UR QUAL NEGATIVE
[2020-06-12 17:10] LABS: BASOPHILS # (AUTO) 0.1 10^3/uL (0.0-0.1); BASOPHILS % (AUTO) 0.7 %; EOSINOPHILS # (AUTO) 0.3 10^3/uL (0.0-0.7); EOSINOPHILS % (AUTO) 2.6 %; HGB - HEMOGLOBIN 14.1 g/dL (12.0-16.0); LYMPHOCYTES # (AUTO) 2.9 10^3/uL (1.5-3.5); LYMPHOCYTES % (AUTO) 30.4 %; MEAN CORPUSCULAR HEMOGLOBIN 31.1 pg (27.0-31.0); MEAN CORPUSCULAR HGB CONC 33.6 g/dL (32.0-36.0); MEAN CORPUSCULAR VOLUME 92.7 fL (81.0-99.0); MEAN PLATELET VOLUME 10.2 fL (7.9-10.8); MONOCYTES # (AUTO) 0.6 10^3/uL (0.0-1.0); MONOCYTES % (AUTO) 6.2 %; NEUTROPHILS # (AUTO) 5.8 10^3/uL (1.5-6.6); NEUTROPHILS % (AUTO) 59.8 %; PLT - PLATELET COUNT 306 10^3/uL (130-450); RED BLOOD COUNT 4.53 10^6/uL (4.20-5.40); RED CELL DISTRIBUTION WIDTH 12.7 % (12.0-15.0); WHITE BLOOD COUNT 9.7 x10^3/uL (4.8-10.8)
[2020-06-12 17:23] LABS: ALBUMIN 4.6 g/dL (3.2-5.5); ALBUMIN/GLOBULIN RATIO 1.5 (1.0-2.2); BILIRUBIN,TOTAL 0.5 mg/dL (0.2-1.0); CREATININE 0.6 mg/dL (0.4-1.0); POTASSIUM 3.9 mmol/L (3.5-5.0); TOTAL PROTEIN 7.7 g/dL (6.7-8.2)
[2020-06-12] MEDS ORDERED: IOVERSOL 320 100 ML VIAL IVP ONE ×2 (17:56→18:02)
--- NOTE | 2020-06-12 18:29 | CT Report ---
PROCEDURE: Abdomen/Pelvis W INDICATIONS: iv only, luq pain CONTRAST: IV CONTRAST: Optiray 320 ml: 100 PO CONTRAST: *NO PO CONTRAST TECHNIQUE: After the administration of intravenous contrast, 5 mm thick sections acquired from the diaphragms to the symphysis. 5 mm thick coronal and sagittal reformats were acquired. For radiation dose reducti on, the following was used: automated exposure control, adjustment of mA and/or kV according to catherine ent size. COMPARISON: None. FINDINGS: Image quality: Excellent. ABDOMEN: Lung bases: Lung bases are clear. Heart size is normal. Solid organs: Liver and spleen are normal in size and enhancement. Gallbladder is diffusely contrac vicki, unremarkable. Biliary system is non dilated. Pancreas enhances normally. No adrenal nodules. Kidneys demonstrate normal size and enhancement, without hydronephrosis. Peritoneum and bowel: Bowel loops demonstrate normal wall thickness and caliber. No free fluid or a ir. Nodes and vessels: No retroperitoneal or mesenteric adenopathy by size criteria. Aorta and inferior vena cava are normal in size. Miscellaneous: No ventral hernias. PELVIS: Genitourinary: Bladder wall thickness is normal. Miscellaneous: No inguinal hernias or adenopathy. Bones: No suspicious bony lesions. No vertebral body compression fractures. IMPRESSION: Unremarkable CT of the abdomen and pelvis with contrast. Reviewed by: Ray Roberto MD on 06/12/2020 6:28 PM PST Approved by: Ray Roberto MD on 06/12/2020 6:28 PM PST Station ID: [id number]
[2020-06-12] MEDS ORDERED: PANTOPRAZOLE 40 MG TABLET PO STA (18:35)
[2020-06-12] MEDS ORDERED: diphenhydrAMINE 25 MG CAPSULE PO STA (18:35)
[2020-06-12 18:48] VITALS: BP 132/69
== END 2020-06-12 18:36 | disposition home or self-care (01) ==
LOC: ED 16:43
DX: R10.12 Left upper quadrant pain (principal); Z98.51 Tubal ligation status; Z72.0 Tobacco use
CPT/HCPCS: 36415; 74177; 80053; 81003; 81025; 83690; 85025; 99284; A9270; Q9967; 81001; 87086

== ENCOUNTER 2020-08-02 08:34 | Outpatient (CLI) | payer OTHER ==
[2020-08-02 12:05] LABS: BASOPHILS # (AUTO) 0.1 10^3/uL (0.0-0.1); BASOPHILS % (AUTO) 0.9 %; EOSINOPHILS # (AUTO) 0.2 10^3/uL (0.0-0.7); EOSINOPHILS % (AUTO) 2.2 %; HCT - HEMATOCRIT 44.1 % (37.0-47.0); HGB - HEMOGLOBIN 14.2 g/dL (12.0-16.0); LYMPHOCYTES % (AUTO) 28.9 %; MEAN CORPUSCULAR HEMOGLOBIN 30.4 pg (27.0-31.0); MEAN CORPUSCULAR HGB CONC 32.2 g/dL (32.0-36.0); MEAN CORPUSCULAR VOLUME 94.4 fL (81.0-99.0); MEAN PLATELET VOLUME 10.5 fL (7.9-10.8); MONOCYTES # (AUTO) 0.4 10^3/uL (0.0-1.0); MONOCYTES % (AUTO) 6.4 %; NEUTROPHILS # (AUTO) 4.2 10^3/uL (1.5-6.6); PLT - PLATELET COUNT 332 10^3/uL (130-450); RED BLOOD COUNT 4.67 10^6/uL (4.20-5.40); RED CELL DISTRIBUTION WIDTH 12.6 % (12.0-15.0); WHITE BLOOD COUNT 6.9 x10^3/uL (4.8-10.8)
[2020-08-02 12:34] LABS: THYROID STIMULATING HORMONE 1.05 uIU/mL (0.34-5.60)
[2020-08-02 12:41] LABS: ALBUMIN 4.6 g/dL (3.2-5.5); ALBUMIN/GLOBULIN RATIO 1.7 (1.0-2.2); ALKALINE PHOSPHATASE 50 IU/L (42-121); ALT ALANINE AMINOTRANSFERASE 34 IU/L (10-60); AST ASPARTATE AMINOTRANSFERASE 26 IU/L (10-42); BILIRUBIN,TOTAL 0.5 mg/dL (0.2-1.0); BUN - BLOOD UREA NITROGEN 16 mg/dL (6-20); CARBON DIOXIDE - CO2 24 mmol/L (21-32); CHLORIDE 104 mmol/L (101-111); CHOL/HDL RATIO 4.2 (<4.4); CHOLESTEROL 174 mg/dL; CREATININE 0.7 mg/dL (0.4-1.0); GFR - MDRD 96 (>89); GLUCOSE 84 mg/dL (70-100); HDL CHOLESTEROL 41 mg/dL; LDL CHOLESTEROL,CALCULATED 117 mg/dL; LDL/HDL RATIO 2.9 (<4.4); LIPASE 35 U/L (22-51); POTASSIUM 4.2 mmol/L (3.5-5.0); SODIUM 137 mmol/L (135-145); TOTAL PROTEIN 7.3 g/dL (6.7-8.2); TRIGLYCERIDES 80 mg/dL; VLDL CHOLESTEROL 16 mg/dL
[2020-08-02 12:45] LABS: CRP - C-REACTIVE PROTEIN < 1.0 mg/dL (0-1.0)
== END 2020-08-02 08:35 | disposition home or self-care (01) ==
LOC: LAB.N 08:34
PROVIDERS: ATTEND Physician Assistant Medical
DX: Z00.00 Encounter for general adult medical examination without abnormal findings (principal); K58.9 Irritable bowel syndrome, unspecified
CPT/HCPCS: 36415; 80053; 80061; 83690; 83721; 84443; 85025; 85651; 86140

== ENCOUNTER 2021-05-25 15:39 | Outpatient (CLI) | payer OTHER ==
--- NOTE | 2021-05-25 16:05 | XRAY Report ---
PROCEDURE: Chest 1 View X-Ray INDICATIONS: Dyspnea TECHNIQUE: One view of the chest was acquired. COMPARISON: None. FINDINGS: Surgical changes and devices: None. Lungs and pleura: No pleural effusions or pneumothorax. Lungs are clear. Mediastinum: Mediastinal contours appear normal. Heart size is normal. Bones and chest wall: No suspicious bony lesions. Overlying soft tissues appear unremarkable. IMPRESSION: No acute cardiopulmonary process demonstrated radiographically. Reviewed by: Melvin Spangler MD on 05/25/2021 4:03 PM [facility] Approved by: Melvin Spangler MD on 05/25/2021 4:03 PM [facility] Station ID: [id number]
== END 2021-05-25 15:40 | disposition home or self-care (01) ==
LOC: DI.N 15:39
PROVIDERS: ATTEND Physician Assistant
DX: R06.00 Dyspnea, unspecified (principal); R53.83 Other fatigue; Z13.220 Encounter for screening for lipoid disorders; Z13.1 Encounter for screening for diabetes mellitus; Z13.29 Encounter for screening for other suspected endocrine disorder; R07.9 Chest pain, unspecified
CPT/HCPCS: 36415; 80053; 80061; 83036; 83721; 84443; 84484; 85025

== ENCOUNTER 2021-05-25 15:42 | Outpatient (CLI) | payer OTHER ==
[2021-05-25 18:23] LABS: BASOPHILS % (AUTO) 0.6 %; EOSINOPHILS # (AUTO) 0.1 10^3/uL (0.0-0.7); HCT - HEMATOCRIT 43.9 % (37.0-47.0); HGB - HEMOGLOBIN 14.3 g/dL (12.0-16.0); LYMPHOCYTES # (AUTO) 2.1 10^3/uL (1.5-3.5); LYMPHOCYTES % (AUTO) 30.3 %; MEAN CORPUSCULAR HEMOGLOBIN 30.6 pg (27.0-31.0); MEAN CORPUSCULAR HGB CONC 32.6 g/dL (32.0-36.0); MEAN CORPUSCULAR VOLUME 93.8 fL (81.0-99.0); MEAN PLATELET VOLUME 10.5 fL (7.9-10.8); MONOCYTES # (AUTO) 0.4 10^3/uL (0.0-1.0); MONOCYTES % (AUTO) 5.5 %; NEUTROPHILS # (AUTO) 4.3 10^3/uL (1.5-6.6); NEUTROPHILS % (AUTO) 61.3 %; PLT - PLATELET COUNT 354 10^3/uL (130-450); RED BLOOD COUNT 4.68 10^6/uL (4.20-5.40); RED CELL DISTRIBUTION WIDTH 12.8 % (12.0-15.0)
[2021-05-25 19:24] LABS: THYROID STIMULATING HORMONE 1.25 uIU/mL (0.34-5.60)
[2021-05-25 19:26] LABS: ALBUMIN 4.6 g/dL (3.2-5.5); ALBUMIN/GLOBULIN RATIO 1.4 (1.0-2.2); ALKALINE PHOSPHATASE 55 IU/L (42-121); ALT ALANINE AMINOTRANSFERASE 41 IU/L (10-60); AST ASPARTATE AMINOTRANSFERASE 31 IU/L (10-42); BILIRUBIN,TOTAL 0.4 mg/dL (0.2-1.0); BUN - BLOOD UREA NITROGEN 11 mg/dL (6-20); CALCIUM 8.9 mg/dL (8.5-10.3); CARBON DIOXIDE - CO2 27 mmol/L (21-32); CHLORIDE 99 mmol/L (101-111); CHOL/HDL RATIO 4.3 (<4.4); CHOLESTEROL 186 mg/dL; CREATININE 0.7 mg/dL (0.4-1.0); GFR - MDRD 96 (>89); GLUCOSE 84 mg/dL (70-100); HDL CHOLESTEROL 43 mg/dL; LDL CHOLESTEROL,CALCULATED 128 mg/dL; POTASSIUM 4.1 mmol/L (3.5-5.0); SODIUM 135 mmol/L (135-145); TOTAL PROTEIN 7.9 g/dL (6.7-8.2); TRIGLYCERIDES 74 mg/dL; VLDL CHOLESTEROL 15 mg/dL
[2021-05-25 21:47] LABS: ESTIMATED AVERAGE GLUCOSE 100 mg/dL (70-100); HEMOGLOBIN A1c% 5.1 % (4.27-6.07)
== END 2021-05-25 15:43 | disposition home or self-care (01) ==
LOC: LAB.N 15:42
PROVIDERS: ATTEND Physician Assistant
DX: R53.83 Other fatigue (principal); Z13.220 Encounter for screening for lipoid disorders; Z13.1 Encounter for screening for diabetes mellitus; Z13.29 Encounter for screening for other suspected endocrine disorder; R07.9 Chest pain, unspecified
CPT/HCPCS: 36415; 80053; 80061; 83036; 83721; 84443; 84484; 85025

== ENCOUNTER 2021-06-21 08:48 | Outpatient (CLI) | payer OTHER ==
[2021-06-23 14:16] LABS: NIL 0.02 IU/mL
== END 2021-06-21 08:49 | disposition home or self-care (01) ==
LOC: LAB.N 08:48
PROVIDERS: ATTEND Physician Assistant Medical
DX: L29.8 Other pruritus (principal); Z11.1 Encounter for screening for respiratory tuberculosis
CPT/HCPCS: 36415; 81599; 86003; 86480

== ENCOUNTER 2022-01-28 12:57 | Outpatient (CLI) | payer OTHER ==
[2022-01-28 13:08] LABS: BASOPHILS # (AUTO) 0.1 10^3/uL (0.0-0.1); BASOPHILS % (AUTO) 0.9 %; EOSINOPHILS # (AUTO) 0.1 10^3/uL (0.0-0.7); EOSINOPHILS % (AUTO) 1.2 %; HCT - HEMATOCRIT 44.7 % (37.0-47.0); HGB - HEMOGLOBIN 14.6 g/dL (12.0-16.0); LYMPHOCYTES # (AUTO) 1.4 10^3/uL (1.5-3.5); LYMPHOCYTES % (AUTO) 20.9 %; MEAN CORPUSCULAR HEMOGLOBIN 29.9 pg (27.0-31.0); MEAN CORPUSCULAR HGB CONC 32.7 g/dL (32.0-36.0); MEAN CORPUSCULAR VOLUME 91.6 fL (81.0-99.0); MEAN PLATELET VOLUME 10.3 fL (7.9-10.8); MONOCYTES # (AUTO) 0.4 10^3/uL (0.0-1.0); MONOCYTES % (AUTO) 6.4 %; NEUTROPHILS # (AUTO) 4.8 10^3/uL (1.5-6.6); NEUTROPHILS % (AUTO) 70.3 %; PLT - PLATELET COUNT 288 10^3/uL (130-450); RED BLOOD COUNT 4.88 10^6/uL (4.20-5.40); RED CELL DISTRIBUTION WIDTH 12.6 % (12.0-15.0); WHITE BLOOD COUNT 6.8 x10^3/uL (4.8-10.8)
[2022-01-28 13:30] LABS: ALBUMIN 4.7 g/dL (3.2-5.5); ALBUMIN/GLOBULIN RATIO 1.7 (1.0-2.2); BILIRUBIN,TOTAL 0.8 mg/dL (0.2-1.0); CALCIUM 9.5 mg/dL (8.5-10.3); CREATININE 0.6 mg/dL (0.4-1.0); POTASSIUM 4.2 mmol/L (3.5-5.0); TOTAL PROTEIN 7.5 g/dL (6.7-8.2)
--- NOTE | 2022-01-28 14:35 | CT Report ---
PROCEDURE: CT abdomen and pelvis without contrast INDICATIONS: ABDOMINAL PAIN,RIGHT LOWER QUADRANT TECHNIQUE: Noncontrast 5 mm thick sections acquired from the diaphragms to the symphysis. 5 mm coronal and sagi ttal reformats were then performed. For radiation dose reduction, the following was used: automated exposure control, adjustment of mA and/or kV according to patient size. COMPARISON: None. FINDINGS: Image quality: Excellent. ABDOMEN: Lung bases: Lung bases are clear. Heart size is normal. Solid organs: Liver and spleen are normal in size. Gallbladder unremarkable. Pancreas is normal in contours. No adrenal nodules. Kidneys are normal in size, without hydronephrosis or nephrolithiasi s. Peritoneum and bowel: Unenhanced bowel loops demonstrate normal wall thickness and caliber. No free fluid or air. Normal appendix identified Nodes and vessels: No retroperitoneal or mesenteric adenopathy by size criteria. Aorta and inferior vena cava are normal in caliber. Miscellaneous: No ventral hernias. PELVIS: Genitourinary: Bladder wall thickness is normal. Miscellaneous: No inguinal hernias or adenopathy. Bones: No suspicious bony lesions. No vertebral body compression fractures. IMPRESSION: 1. Normal appendix. No evidence of appendicitis 2. No acute CT findings in the abdomen or pelvis Reviewed by: Misha Marti MD on 01/28/2022 1:34 PM [facility] Approved by: Misha Marti MD on 01/28/2022 1:34 PM [facility] Station ID: [id number]
== END 2022-01-28 12:58 | disposition home or self-care (01) ==
LOC: DI 12:57
PROVIDERS: ATTEND Physician Assistant Medical
DX: R10.31 Right lower quadrant pain (principal)
CPT/HCPCS: 36415; 80053; 83690; 85025; 87086

== ENCOUNTER 2022-05-27 11:30 | Outpatient (CLI) | payer OTHER ==
[2022-05-27 17:40] LABS: BASOPHILS # (AUTO) 0.1 10^3/uL (0.0-0.1); EOSINOPHILS # (AUTO) 0.1 10^3/uL (0.0-0.7); EOSINOPHILS % (AUTO) 1.2 %; HCT - HEMATOCRIT 42.1 % (37.0-47.0); HGB - HEMOGLOBIN 13.4 g/dL (12.0-16.0); LYMPHOCYTES # (AUTO) 1.7 10^3/uL (1.5-3.5); LYMPHOCYTES % (AUTO) 35.9 %; MEAN CORPUSCULAR HEMOGLOBIN 30.1 pg (27.0-31.0); MEAN CORPUSCULAR HGB CONC 31.8 g/dL (32.0-36.0); MEAN CORPUSCULAR VOLUME 94.6 fL (81.0-99.0); MEAN PLATELET VOLUME 11.3 fL (7.9-10.8); MONOCYTES # (AUTO) 0.3 10^3/uL (0.0-1.0); MONOCYTES % (AUTO) 5.8 %; NEUTROPHILS # (AUTO) 2.7 10^3/uL (1.5-6.6); NEUTROPHILS % (AUTO) 55.9 %; PLT - PLATELET COUNT 258 10^3/uL (130-450); RED BLOOD COUNT 4.45 10^6/uL (4.20-5.40); RED CELL DISTRIBUTION WIDTH 13.2 % (12.0-15.0); WHITE BLOOD COUNT 4.8 x10^3/uL (4.8-10.8)
[2022-05-27 17:50] LABS: ALBUMIN/GLOBULIN RATIO 1.4 (1.0-2.2); ALKALINE PHOSPHATASE 53 IU/L (42-121); ALT ALANINE AMINOTRANSFERASE 28 IU/L (10-60); AST ASPARTATE AMINOTRANSFERASE 20 IU/L (10-42); BILIRUBIN,TOTAL 0.5 mg/dL (0.2-1.0); BUN - BLOOD UREA NITROGEN 13 mg/dL (6-20); CALCIUM 9.2 mg/dL (8.5-10.3); CARBON DIOXIDE - CO2 24 mmol/L (21-32); CHLORIDE 107 mmol/L (101-111); CHOL/HDL RATIO 3.2 (<4.4); CHOLESTEROL 122 mg/dL; CREATININE 0.6 mg/dL (0.4-1.0); GFR - MDRD 114 (>89); GLUCOSE 86 mg/dL (70-100); HDL CHOLESTEROL 38 mg/dL; POTASSIUM 4.2 mmol/L (3.5-5.0); SODIUM 137 mmol/L (135-145); TOTAL PROTEIN 6.8 g/dL (6.7-8.2); TRIGLYCERIDES 28 mg/dL
[2022-05-27 18:01] LABS: THYROID STIMULATING HORMONE 1.96 uIU/mL (0.34-5.60)
== END 2022-05-27 11:31 | disposition home or self-care (01) ==
LOC: LAB.N 11:30
PROVIDERS: ATTEND Physician Assistant Medical
DX: Z00.00 Encounter for general adult medical examination without abnormal findings (principal); Z71.9 Counseling, unspecified
CPT/HCPCS: 36415; 80053; 80061; 81599; 83721; 84443; 85025; 86480

== ENCOUNTER 2022-06-25 09:57 | Outpatient (CLI) | payer OTHER ==
[~2022-06-25 09:57] MED LIST changes: -ACETAMINOPHEN 1,000 MG/100 ML 100 ML IV ONE; -GABAPENTIN 400 MG CAPSULE ONE; +GADOBUTROL 7.5 MMOL/7.5 ML VIAL ONE
--- NOTE | 2022-06-25 16:16 | CT Report ---
PROCEDURE: CHEST WO INDICATIONS: UNINTENTIONAL WEIGHT LOSS, RT ARM MELANOMA TECHNIQUE: Noncontrast 1mm axial images were acquired from the pulmonary apices to the posterior costophrenic an gles. Axial 5 mm soft tissue kernel reconstructions were performed as well as 8 mm axial MIP and cor onal and sagittal 5 mm reformations. For radiation dose reduction, the following was used: automate d exposure control, adjustment of mA and/or kV according to patient size. COMPARISON: CT abdomen and pelvis dated 01/28/2022 FINDINGS: Image quality: Excellent. Lungs and pleura: No acute air space opacities. No pleural effusions or pneumothorax. Central and peripheral airways are patent and normal in caliber. Mediastinum: Heart size is normal. No pericardial effusion. No mediastinal adenopathy by size crit eria. Anterior mediastinal density likely represents residual thymus tissue. Thoracic aorta and centr al pulmonary arteries are normal in size. Esophagus is normal in caliber. No hiatal hernia. Bones and chest wall: No suspicious bony lesions. No vertebral body compression fractures. No axil yasemin or supraclavicular adenopathy by size criteria. The thyroid is normal in size and there are no incidental findings. Abdomen: Visualized upper abdominal solid organs and bowel loops appear normal in the absence of con trast. IMPRESSION: 1. 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 However, mediastinal lymphoma can also occupy this location, in this patient with unintentional weight loss. 2. Otherwise unremarkable chest CT without contrast. Comment: Recommend follow-up chest CT in 2-3 months with contrast to evaluate the stability or change s of the anterior mediastinal tissue. CLINICAL RECOMMENDATION STATEMENTS: In patients <35 years with an ITN detected on CT, MRI, or extrathyroidal ultrasound, the Committee re commends further evaluation with dedicated thyroid ultrasound if the nodule is "e1 cm and has no susp icious imaging features, and if the patient has normal life expectancy. In patients "e35 years with an ITN detected on CT, MRI, or extrathyroidal ultrasound, the Committee r ecommends further evaluation with dedicated thyroid ultrasound if the nodule is "e1.5 cm and has no s uspicious imaging features, and if the patient has normal life expectancy. (ACR, 2014) Reviewed by: Ray Roberto MD on 06/25/2022 4:14 PM PDT Approved by: Ray Roberto MD on 06/25/2022 4:14 PM PDT Station ID: [id number]
== END 2022-06-25 09:58 | disposition home or self-care (01) ==
LOC: DI 09:57
PROVIDERS: ATTEND Physician Assistant Medical
DX: R63.4 Abnormal weight loss (principal)

== ENCOUNTER 2022-08-06 09:40 | Outpatient (CLI) | payer OTHER ==
--- NOTE | 2022-08-06 09:52 | CARDIAC PROCEDURE NOTE ---
Stress Test Report Service Date: 08/06/22 Service Time: 10:00 Ordering Provider: Yasmine Perkins PA-C Indication for Test: Assess hemodynamic response to exercise in patient who has been experiencing inappropriately high rates with pounding heart and upper chest/throat tightness during recently resumed aerobic workouts. Significant Medical History: Erin reports longstanding moderate obesity, with weight in the range of 220- 230 pounds, prior to undergoing a series of [facility] procedures (not including oophorectomy) and breast reduction surgery in 2019. During recovery she remained rather sedentary. She had resumed cigarette smoking, but in December 2021 she made major lifestyle changes that included abstinence from tobacco and caffeine, with a highly modified diet including elimination of gluten, eggs and other dairy products, resulting in weight loss of nearly 75 pounds. She has 2 dogs that she walks in her neighborhood at a moderate pace and does not experience symptoms, but in the past several weeks upon attempting to resume a more intensive exercise program with rapid stationary bicycling she has noted her heart rate zooming up rather quickly to as high as 200, in association with an uncomfortable pounding heart beat and tightness in her throat and upper chest. She denies diaphoresis out of proportion to her activity level, as well as exertional lightheadedness. She reports that her blood pressure typically runs low with occasional resting lightheadedness and she does not know how her blood pressure responds to exercise. Cardiac Risk Factors: Positive for intermittent tobacco smoking (quit 2013 but resumed 2017 then stopped again in 2021), family history of maternal grandfather with CA in his early 50's); negative for history of hypertension, hyperlipidemia and diabetes. Type of Stress Test: Exercise Treadmill Test (ETT) Procedure: -Exercise Treadmill Test- After signing informed consent, the patient performed treadmill exercise using a Dane protocol. The patient exercised for 10 minutes 6 seconds and achieved a peak heart rate of 162 (90 percent predicted maximum heart rate for age), and an estimated workload of 12 METS. The test was terminated due to leg fatigue/shortness of breath. Resting heart rate: 62 Peak heart rate: 162 Normal response to exercise. Resting BP: 109/72 Peak BP: 182/68 Normal BP response to exercise. Rhythm during exercise: Sinus rhythm throughout; with normal graded HR increase with each stage of the exercise protocol. Symptoms: She described onset of throat and upper chest tightness starting in mid stage 3, that persisted until 3-4 minutes of recovery. She comments that this is the sensation she typically experiences with rapid stationary bicycling, and that she also experiences it sometimes when she is under stress. EKG at rest showed normal sinus rhythm, normal in all aspects. EKG at peak stress showed ST depression that was initially upsloping but became horizontal near the peak of exercise, likely meeting diagnostic EKG criteria for ischemia. In Recovery heart rate and BP rapidly and normally returned to near baseline levels. No imaging was ordered with this stress test. I, Roland Mcpherson MD, was present throughout this treadmill stress study and supervised it in its entirety. Summary: 1) Exercise tolerance slightly above average for age/sex, as evidenced by YAMIL of -8%. No evidence of inappropriate heart rate increase with exercise. 2) Normal resting EKG. 3) Adequate level of exercise was achieved on this treadmill stress test. 4) Normal resting BP and physiologic response of systolic and diastolic BP to exercise. 5) ST depression meeting diagnostic criteria for ischemia EKG criteria was seen at peak stress. 6) No imaging was ordered with this test. Conclusions and Recommendations: 1) Her normal blood pressure and heart rate response to exercise is reassuring regarding inappropriate tachycardia or exercise-induced hypotension. 2) She did experience throat and upper chest tightness near peak exertion that was associated with horizontal ST depression, concerning for ischemia. Given that she has also experienced similar chest symptoms with anxiety, it is conceivable that both the symptoms and EKG response do not indicate ischemia, but given her significant risk factor profile (tobacco smoking and positive family history in mother's family) I am recommending that she return for a stress echocardiogram in hopes of further clarifying this situation. She may be one of the 30-40% of women who experience false positive ST depression on stand alone ETTs.
== END 2022-08-06 09:41 | disposition home or self-care (01) ==
LOC: DI 09:40
PROVIDERS: ATTEND Physician Assistant Medical
DX: R00.0 Tachycardia, unspecified (principal); Z87.891 Personal history of nicotine dependence; Z82.49 Family history of ischemic heart disease and other diseases of the circulatory system
CPT/HCPCS: 93017